=== PATIENT | female | born 1945 ===

== ENCOUNTER 2016-10-05 18:40 | Emergency (ER) | payer MEDICARE, OTHER ==
[2016-10-05 18:57] VITALS: BP 126/78; PULSE 104; RESP 20; TEMP 98.2; O2SAT 98
[2016-10-05] MEDS ORDERED: Naproxen 550 mg Tab PO STA (19:39)
[2016-10-05] MEDS ORDERED: Tetanus/Diphtheria Toxoids 0.5 ml Syringe IM ONE ×2 (19:40→19:52)
[2016-10-05] MEDS ORDERED: Naproxen 550 mg Tab PO ONE (19:51)
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
--- NOTE | 2016-10-06 10:14 | RAD ---
PROCEDURE: Radiographs of the pelvis and bilateral hips HISTORY: HIP/PELVIC PAIN COMPARISON: None. FINDINGS: BONES: Pelvis: Unremarkable. Right hip:Unremarkable. Left hip:Unremarkable. JOINTS: Right hip: Unremarkable. Left hip: Unremarkable. Sacroiliac Joints: Unremarkable. Pubic symphysis: Unremarkable. SOFT TISSUES: Normal. OTHER FINDINGS: None. IMPRESSION: Unremarkable radiographs of the hips and pelvis.
--- NOTE | 2016-10-06 10:15 | RAD ---
PROCEDURE: Chest and right ribs HISTORY: RIGHT SIDED RIB PAIN AFTER FALL COMPARISON: None available. TECHNIQUE: Frontal radiograph of the chest and multiple oblique radiographs of the right ribs were obtained. FINDINGS: RIGHT RIBS: No fracture or focal lesion visualized. LUNGS: Clear. PLEURA: No pneumothorax or pleural fluid. CARDIOVASCULAR: Normal sized heart. No pulmonary vascular congestion. OTHER FINDINGS: Surgical clips in right upper quadrant status post cholecystectomy. Inferior vena caval filter noted. IMPRESSION: Unremarkable radiographs of the chest and right ribs. No right rib fracture.
--- NOTE | 2016-10-06 10:44 | RAD ---
PROCEDURE: Left Knee Radiographs. HISTORY: Pain, fall. COMPARISON: 09/25/2013 FINDINGS: BONES: There is an apparent longitudinal lucency in the medial aspect of the medial tibial plateau. There is diffuse bone demineralization. Bone alignment is normal. JOINTS: There is mild tricompartmental degenerative osteoarthrosis with mild reduced joint spaces, marginal spurring and tibial spiking, worse in the medial compartment. JOINT EFFUSION: There is a moderate suprapatellar joint effusion. OTHER FINDINGS: None. IMPRESSION: Apparent longitudinal lucency in the medial aspect of the medial tibial plateau is nonspecific and could be related to demineralization however nondisplaced fracture cannot be entirely excluded. Please correlate with point tenderness. Mild tricompartmental degenerative osteoarthrosis, worse in the medial compartment. Moderate suprapatellar joint effusion.
--- NOTE | 2016-10-06 11:21 | RAD ---
PROCEDURE: Cervical Spine Radiographs. HISTORY: Pain. COMPARISON: None. FINDINGS: BONES: There is straightening of the cervical spine with loss of normal cervical lordosis. Vertebral alignment is normal. Vertebral height is maintained. There is no acute fracture or spondylolisthesis. The craniocervical junction is normal. The atlantoaxial joint is normal. DISC SPACES: There is mild multilevel degenerative disc disease with anterior spurring and reduced disc heights, worse at C5-6. SOFT TISSUES: There is no prevertebral soft tissue swelling. OTHER FINDINGS: The visualized lung apices are clear. IMPRESSION: No acute fracture or spondylolisthesis. Straightening of the cervical spine may be positional or related to muscle spasm. . Mild multilevel degenerative disc disease, worse at C5-6.
--- NOTE | 2016-10-06 12:47 | RAD ---
PROCEDURE: Radiographs of the Lumbar Spine. HISTORY: Low back pain, fall COMPARISON: No prior. FINDINGS: BONES: There is normal alignment of the lumbar vertebral bodies. Lumbar lordosis is maintained. There is diffuse bone demineralization. There is no acute fracture or spondylolisthesis. DISC SPACES: There is mild multilevel degenerative disc disease with anterior spurring, reduced disc heights and multilevel facet arthropathy, worse at L5-S1. OTHER FINDINGS: At the inferior vena cava filter remains in place. There are no pathologic soft tissue calcifications. There is mild degenerative osteoarthrosis in the sacroiliac joint. There are atherosclerotic calcifications in the abdominal aorta. IMPRESSION: No acute fracture or spondylolisthesis. Mild multilevel degenerative disc disease, worse at L5-S1.
== END 2016-10-05 21:10 | disposition home or self-care (01) ==
LOC: C.ER 18:40
DX: S22.31XA Fracture of one rib, right side, initial encounter for closed fracture (principal); S33.5XXA Sprain of ligaments of lumbar spine, initial encounter; S73.109A Unspecified sprain of unspecified hip, initial encounter; S83.92XA Sprain of unspecified site of left knee, initial encounter; W01.198A Fall on same level from slipping, tripping and stumbling with subsequent striking against other object, initial encounter; Y93.89 Activity, other specified; Y92.414 Local residential or business street as the place of occurrence of the external cause